=== PATIENT | male | born 1965 | race Caucasian/White ===

== ENCOUNTER 2016-12-09 10:53 | Inpatient (IN) | payer SELFPAY ==
[2016-12-09 11:41] LABS: % IMMATURE GRANULYOCYTES 0.5 % (0.0-1.1); ABSOLUTE IMMATURE GRANULOCYTES 0.04 10^3/uL (0.00-0.10); ADD DIFF? NO; ADD MORPH? NO; ADD SCAN? NO; ATYPICAL LYMPHOCYTE FLAG 0 (0-99); FRAGMENT RBC FLAG 0 (0-99); HEMATOCRIT 35.9 % (40.0-51.0); HEMOGLOBIN 12.8 g/dL (13.7-17.5); LEFT SHIFT FLG 0 (0-99); LIPEMIA HEMOLYSIS FLAG 90 (0-99); MEAN CELL HEMOGLOBIN 34.7 pg (27.9-34.1); MEAN CELL HEMOGLOBIN CONCENTR. 35.7 g/dL (32.4-36.7); MEAN CELL VOLUME 97.3 fL (81.5-99.8); MEAN PLATELET VOLUME 10.3 fL (8.7-11.7); PLATELET CLUMPS FLAG 0 (0-99); PLATELET COUNT 170 10^3/uL (150-400); RED BLOOD CELL COUNT 3.69 10^6/uL (4.40-6.38); RED CELL DISTRIBUTION WIDTH 11.3 % (11.5-15.2)
[2016-12-09 12:02] LABS: ANION GAP 29 mEq/L (8-16); CARBON DIOXIDE 10 mEq/l (22-31); CHLORIDE 92 mEq/L (97-110); CREATININE 1.2 mg/dL (0.7-1.3); ETHANOL SERUM < 10 mg/dL (0-10); GLOMERULAR FILTRATION RATE > 60; GLUCOSE 88 mg/dL (70-100); POTASSIUM 4.1 mEq/L (3.5-5.2); SODIUM 131 mEq/L (134-144)
[2016-12-09] MEDS ORDERED: NS 1,000 ML IV ONE ×2 (12:44)
[2016-12-09] MEDS ORDERED: LORazepam 2 MG/ML INJ IVP ONE ×2 (12:44→15:36)
--- NOTE | 2016-12-09 12:45 | EDPHY ---
H & P Stated Complaint: found wondering in library by [employer] disoriented Time Seen by Provider: 12/09/16 11:10 HPI/ROS: CHIEF COMPLAINT: altered mental status HISTORY OF PRESENT ILLNESS: 51-year-old male presents emergency department by police officers who found him walking downtown disoriented and confused. Upon arrival to the emergency department the patient continued confused though has slowly cleared. Patient reports a history of alcohol abuse and alcohol withdrawal seizures. He states he thinks he may have had a seizure. Patient denies chest pain, shortness of breath, abdominal pain. He denies any drug use. Patient reports he takes Adderall occasionally. Patient states last drink was 4 days ago. REVIEW OF SYSTEMS: A comprehensive 10 point review of systems is otherwise negative aside from elements mentioned in the history of present illness. Source: Patient, Police Exam Limitations: No limitations - Personal History Current Tetanus/Diphtheria Vaccine: Unsure Current Tetanus Diphtheria and Acellular Pertussis (TDAP): Unsure - Medical/Surgical History Hx Asthma: No Hx Chronic Respiratory Disease: No Hx Diabetes: No Hx Cardiac Disease: No Hx Renal Disease: No Hx Cirrhosis: No Hx Alcoholism: Yes Hx HIV/AIDS: No Hx Splenectomy or Spleen Trauma: No Other PMH: depression, anxiety - Social History Smoking Status: Current some day smoker Alcohol Use: Heavy - Physical Exam Exam: Physical Exam Gen: Alert and Oriented, NAD HEENT: PERRL, moist mucous membranes NECK: no meningismus CV: regular rate and regular rhythm PULM: CTAB, no wheezes ABDOMEN: soft, non tender to palpation, BS present BACK: No CVA tenderness NEURO: Patient alert and oriented to person, place, time,No facial asymmetry, follows commands, moves all extremities, mild tongue fasciculation and hand tremors EXTREMITIES: normal appearing SKIN: no rash or break in skin on exposed skin PSYCH: answers questions appropriately. Constitutional: Initial Vital Signs Temperature (C) 36.7 C 12/09/16 11:00 Heart Rate 98 12/09/16 11:00 Respiratory Rate 16 12/09/16 11:00 Blood Pressure 141/100 H 12/09/16 11:00 O2 Sat (%) 98 12/09/16 11:00 O2 Delivery Mode Room Air Allergies/Adverse Reactions: No Known Allergies Allergy (Unverified 12/09/16 10:59) Home Medications: Medication Instructions Recorded Unobtainable 12/09/16 Medical Decision Making - Diagnostics Imaging: Discussed imaging studies w/ supervisor train operations Radiologist ED Course/Re-evaluation: 51-year-old male presents to the emergency department with confusion likely postictal after alcohol withdrawal seizure. Patient slowly as clearing in the emergency department. Patient's chemistry panel is suggestive that he had a seizure with a bicarb of 10. Patient's BUN is elevated. Patient is given 2 L of normal saline and 2 mg of lorazepam IV. [facility] Librium prepack. 330pm-patient re-evaluated, he is confused, tremulous, visual hallucinations. Patient will be admitted for DTs. Pt is given another dose of lorazepam IV. He will be admitted to the ICU. Repeat chemistry panel, lactate and phosphorus ordered. 6pm- patient sleeping, difficult to arouse, increasing confusion. Patient continues with tongue fasciculations and hand tremors, CT brain ordered. Patient transferred to ICU. CT brain with no acute abnormality. Differential Diagnosis: diagnosis considered but not limited to alcohol withdrawal, alcohol withdrawal seizures, delirium tremens, electrolyte imbalance, polysubstance abuse. - Data Points Laboratory Results: Laboratory Results 12/09/16 11:33 12/09/16 11:33 12/09/16 12/09/16 12/09/16 11:33 11:33 11:12 WBC 8.83 10^3/uL 10^3/uL (3.80-9.50) RBC 3.69 10^6/uL L 10^6/uL (4.40-6.38) Hgb 12.8 g/dL L g/dL (13.7-17.5) Hct 35.9 % L % (40.0-51.0) MCV 97.3 fL fL (81.5-99.8) MCH 34.7 pg H pg (27.9-34.1) MCHC 35.7 g/dL g/dL (32.4-36.7) RDW 11.3 % L % (11.5-15.2) Plt Count 170 10^3/uL 10^3/uL (150-400) MPV 10.3 fL fL (8.7-11.7) Neut % (Auto) 84.8 % H % (39.3-74.2) Lymph % (Auto) 6.1 % L % (15.0-45.0) [place] % (Auto) 8.6 % % (4.5-13.0) Eos % (Auto) 0.0 % L % (0.6-7.6) Baso % (Auto) 0.0 % L % (0.3-1.7) Nucleat RBC Rel Count 0.0 % % (0.0-0.2) Absolute Neuts (auto) 7.49 10^3/uL H 10^3/uL (1.70-6.50) Absolute Lymphs (auto) 0.54 10^3/uL L 10^3/uL (1.00-3.00) Absolute Monos (auto) 0.76 10^3/uL 10^3/uL (0.30-0.80) Absolute Eos (auto) 0.00 10^3/uL L 10^3/uL (0.03-0.40) Absolute Basos (auto) 0.00 10^3/uL L 10^3/uL (0.02-0.10) Absolute Nucleated RBC 0.00 10^3/uL 10^3/uL (0-0.01) Immature Gran % 0.5 % % (0.0-1.1) Immature Gran # 0.04 10^3/uL 10^3/uL (0.00-0.10) Sodium 131 mEq/L L mEq/L (134-144) Potassium 4.1 mEq/L mEq/L (3.5-5.2) Chloride 92 mEq/L L mEq/L (97-110) Carbon Dioxide 10 mEq/l L mEq/l (22-31) Anion Gap 29 mEq/L H mEq/L (8-16) BUN 56 mg/dL H mg/dL (7-23) Creatinine 1.2 mg/dL mg/dL (0.7-1.3) Estimated GFR > 60 Glucose 88 mg/dL mg/dL (70-100) Calcium 10.0 mg/dL mg/dL (8.5-10.4) Urine Opiates Screen NEGATIVE (NEGATIVE) Urine Barbiturates NEGATIVE (NEGATIVE) Ur Phencyclidine Scrn NEGATIVE (NEGATIVE) Ur Amphetamine Screen NON-NEGATIVE H (NEGATIVE) U Benzodiazepines Scrn NEGATIVE (NEGATIVE) Urine Cocaine Screen NEGATIVE (NEGATIVE) U Marijuana (THC) Screen NEGATIVE (NEGATIVE) Ethyl Alcohol < 10 mg/dL mg/dL (0-10) Medications Given: Discontinued Medications Chlordiazepoxide (Librium 25 Mg Prepack#6) 1 btl TAKEHOME EDNOW ONE Stop: 12/09/16 13:45 Last Admin: 12/09/16 17:59 Dose: Not Given Sodium Chloride (Ns) 1,000 mls @ 0 mls/hr IV ONCE ONE PRN Reason: Wide Open Stop: 12/09/16 12:45 Last Admin: 12/09/16 12:45 Dose: 1,000 mls Sodium Chloride (Ns) 1,000 mls @ 0 mls/hr IV ONCE ONE PRN Reason: Wide Open Stop: 12/09/16 12:45 Last Admin: 12/09/16 13:45 Dose: 1,000 mls Lorazepam (Ativan Injection) 2 mg IVP EDNOW ONE Stop: 12/09/16 12:45 Last Admin: 12/09/16 13:45 Dose: 2 mg Lorazepam (Ativan Injection) 1 mg IVP EDNOW ONE Stop: 12/09/16 15:37 Last Admin: 12/09/16 16:14 Dose: 1 mg Departure - Departure Disposition: [facility] Clinical Impression: Encephalopathy, Delirium tremens Condition: Good
[2016-12-09] MEDS ORDERED: CHLORDIAZEPOXIDE 25MG PREPK#6 BTL TAKEHOME ONE (13:44)
[2016-12-09] MEDS ORDERED: ONDANSETRON DISINTEGRATING 4 MG TAB PO PRN (16:42)
[2016-12-09] MEDS ORDERED: ONDANSETRON 4 MG/2 ML VIAL IVP PRN (16:42)
[2016-12-09] MEDS ORDERED: ACETAMINOPHEN 325 MG TAB PO PRN (16:42)
[2016-12-09] MEDS ORDERED: LORazepam 2 MG/ML INJ IVP PRN (16:44)
[2016-12-09] MEDS ORDERED: NS 1,000 ML IV SCH (16:45)
[2016-12-09 17:33] LABS: ALANINE AMINOTRANSFERASE 118 IU/L (21-72); ALBUMIN 4.6 g/dL (3.5-5.0); ALKALINE PHOSPHATASE 95 IU/L (38-126); ANION GAP 20 mEq/L (8-16); ASPARTATE AMINOTRANSFERASE 195 IU/L (17-59); BILIRUBIN,TOTAL 3.4 mg/dL (0.1-1.4); BILIRUBIN-CONJUGATED 1.9 mg/dL (0.0-0.5); BILIRUBIN-UNCONJUGATED 1.5 mg/dL (0.0-1.1); CALCIUM 8.5 mg/dL (8.5-10.4); CARBON DIOXIDE 16 mEq/l (22-31); CHLORIDE 99 mEq/L (97-110); CREATININE 0.8 mg/dL (0.7-1.3); GLOMERULAR FILTRATION RATE > 60; GLUCOSE 71 mg/dL (70-100); POTASSIUM 3.8 mEq/L (3.5-5.2); SODIUM 135 mEq/L (134-144); TOTAL PROTEIN 7.3 g/dL (6.3-8.2)
--- NOTE | 2016-12-09 17:41 | GHP ---
[f rep st] HISTORY AND PHYSICAL DATE OF ADMISSION: 12/09/2016 CHIEF COMPLAINT: Confusion. HISTORY OF PRESENT ILLNESS: A 51-year-old male, with a history of polysubstance abuse, who was foun d disoriented and acutely confused walking around downtown, patient was brought into the emergency d epartment by [employer]. Upon arrival to the emergency department patient reports a history of alcohol abuse, as well as alcohol withdrawal seizures. Reports that he believes his last drink was several days ago. Denies any chest pain, denies any shortness of breath, denies any abdominal pain, denies any known vomiting. Denies hematemesis, hematochezia, or melena. Reports that he takes sti mulants for his psychiatric illness, denies any known sick contacts, headache, vision changes, or kn own rashes. PAST MEDICAL HISTORY: 1. Depression. 2. Anxiety. SOCIAL HISTORY: Patient has been known to abuse alcohol, denies tobacco or illicit drugs. Patient reports occasionally smoking a cigarette. FAMILY HISTORY: Negative for cardiac disease. REVIEW OF SYSTEMS: A 10-point review of systems is negative, with the exception of that reported in HPI. PHYSICAL EXAMINATION: VITAL SIGNS: Blood pressure is 141/100, heart rate 105, respiratory rate 18, saturating 98% on room air, 36.7. GENERAL: This is a very disheveled young male in mild distress. HEENT: Notable for dry mucous membranes. Eye exam is negative for any icterus. CARDIAC: Patien t is noted to be tachycardic. PULMONARY: Clear to auscultation. GASTROINTESTINAL: Positive bowel sounds. ABDOMEN: Soft. MUSCULOSKELETAL: Negative for any lower extremity edema. SKIN: Negativ e for any rashes. NEUROLOGIC: Patient appears somnolent, but following the examination he is orien jeannie x2 and tremulous on examination. PSYCHIATRIC: He seems somnolent. DATA: White count 8.8, hematocrit 35.9, platelets of 170, bicarb of 10, sodium of 131, anion gap of 29, BUN 56, creatinine 1.2. Urine tox shows amphetamine positivity as well as an alcohol level les s than 10. Telemetry, which I personally reviewed and interpreted, shows sinus rhythm, tachycardia. ASSESSMENT AND PLAN: This is a 51-year-old male presenting with acute alcohol withdrawal. 1. Acute alcohol withdrawal. Patient has a history of alcohol withdrawal seizures and excessive in take previous. We will admit the patient, place on the alcohol withdrawal protocol. His risk of re quiring Precedex is quite high, we will admit him to the stepdown unit for close monitoring. 2. Metabolic anion gap acidosis, suspect starvation ketosis related to his alcohol, and poor p.o. i ntake. We will aggressively fluid resuscitate, check a lactate level and follow. 3. Alcohol abuse. We will give the patient vitamins, check a phosphorus level, and hydrate as abov e. Patient will need counseling once he gets through the worst of this withdrawal. 4. Acute kidney injury, suspect secondary to hypovolemia. We will fluid resuscitate and recheck a set of labs, prophylaxis with Lovenox. 5. Diet, n.p.o. until he clears and is protecting his airway appropriately. DISPOSITION: I expect greater than 2 midnights, as I believe the patient's alcohol withdrawal will worsen before he stabilizes. We will admit to the stepdown unit. I have discussed the case with [facility] emergency room provider. Patient will be triaged to the step-down in anticipation of worsening al cohol withdrawal status. /[id number]/MODL
[2016-12-10] MEDS: chlordiazePOXIDE 25 MG CAP PO SCH ×4 (00:17→21:00)
[2016-12-10 05:40] LABS: % IMMATURE GRANULYOCYTES 0.2 % (0.0-1.1); ABSOLUTE IMMATURE GRANULOCYTES 0.01 10^3/uL (0.00-0.10); ADD DIFF? NO; ADD MORPH? NO; ADD SCAN? NO; ATYPICAL LYMPHOCYTE FLAG 0 (0-99); FRAGMENT RBC FLAG 0 (0-99); HEMATOCRIT 31.8 % (40.0-51.0); HEMOGLOBIN 11.4 g/dL (13.7-17.5); LEFT SHIFT FLG 0 (0-99); LIPEMIA HEMOLYSIS FLAG 90 (0-99); MEAN CELL HEMOGLOBIN CONCENTR. 35.8 g/dL (32.4-36.7); MEAN CELL VOLUME 97.5 fL (81.5-99.8); MEAN PLATELET VOLUME 10.3 fL (8.7-11.7); PLATELET CLUMPS FLAG 10 (0-99); PLATELET COUNT 128 10^3/uL (150-400); RED BLOOD CELL COUNT 3.26 10^6/uL (4.40-6.38); RED CELL DISTRIBUTION WIDTH 11.4 % (11.5-15.2)
[2016-12-10 05:43] LABS: INR 1.15 (0.83-1.16); PROTIME(PATIENT) 14.6 SEC (12.0-15.0)
[2016-12-10 05:59] LABS: ANION GAP 13 mEq/L (8-16); CALCIUM 8.6 mg/dL (8.5-10.4); CARBON DIOXIDE 21 mEq/l (22-31); CHLORIDE 103 mEq/L (97-110); CREATININE 0.6 mg/dL (0.7-1.3); GLOMERULAR FILTRATION RATE > 60; GLUCOSE 80 mg/dL (70-100); MAGNESIUM 2.5 mg/dL (1.6-2.3); POTASSIUM 3.4 mEq/L (3.5-5.2); SODIUM 137 mEq/L (134-144)
[2016-12-10] MEDS: ENOXAPARIN 40 MG/0.4 ML SYR SC SCH (09:25)
[2016-12-10] MEDS ORDERED: chlordiazePOXIDE 25 MG CAP PO PRN (09:31)
--- NOTE | 2016-12-10 09:34 | HOSPPROG ---
Hospitalist Progress Note Assessment/Plan: * ETOH withdrawal * Improving * Continue scheduled Librium * Will add p.r.n. Librium * Transfer to the floor * Probable home tomorrow * history of alcohol withdrawal seizure * alcoholic hepatitis Subjective: Feels pretty good. No new complaints Objective: Vital Signs Temp Pulse Resp BP Pulse Ox 37.1 C 73 13 107/72 97 12/09/16 18:39 12/10/16 04:00 12/10/16 04:00 12/10/16 04:00 12/10/16 04:00 Laboratory Results 12/10/16 05:20 12/10/16 05:20 12/09/16 12/10/16 12/11/16 05:59 05:59 05:59 Intake Total 3216 Output Total 900 Balance 2316 PT 14.6 SEC (12.0-15.0) 12/10/16 05:20 INR 1.15 (0.83-1.16) 12/10/16 05:20 Tele personally viewed interpreted normal sinus rhythm Patient is new to me. Records reviewed and summarized - Physical Exam Constitutional: no apparent distress, appears nourished, not in pain Eyes: anicteric sclera, EOMI Ears, Nose, Mouth, Throat: moist mucous membranes, hearing normal, ears appear normal Cardiovascular: regular rate and rhythym, no murmur, rub, or gallop Respiratory: no respiratory distress, no rales or rhonchi, clear to auscultation Gastrointestinal: normoactive bowel sounds, soft, non-tender abdomen, no palpable masses Skin: warm Neurologic: AAOx3, other (Minimal tremor) Psychiatric: interacting appropriately, not anxious, not encephalopathic, thought process linear ICD10 Worksheet Patient Problems: Problems Problem Status Onset Delirium tremens Acute Encephalopathy Acute
[2016-12-11 05:21] LABS: ANION GAP 10 mEq/L (8-16); CALCIUM 8.8 mg/dL (8.5-10.4); CARBON DIOXIDE 27 mEq/l (22-31); CHLORIDE 98 mEq/L (97-110); CREATININE 0.5 mg/dL (0.7-1.3); GLOMERULAR FILTRATION RATE > 60; GLUCOSE 103 mg/dL (70-100); MAGNESIUM 2.2 mg/dL (1.6-2.3); POTASSIUM 2.9 mEq/L (3.5-5.2); SODIUM 135 mEq/L (134-144)
[2016-12-11] MEDS ORDERED: POTASSIUM CL 20 MEQ TAB PO ONE ×2 (06:32→08:47)
[2016-12-11] MEDS: chlordiazePOXIDE 25 MG CAP PO SCH (08:02)
[2016-12-11] MEDS: ENOXAPARIN 40 MG/0.4 ML SYR SC SCH (08:04)
[2016-12-11 08:58] VITALS: BP 103/68; PULSE 91; RESP 18; TEMP 99.3; O2SAT 91
--- NOTE | 2016-12-11 09:26 | GDS ---
[f rep st] DISCHARGE SUMMARY DISCHARGE DIAGNOSES: 1. Alcohol withdrawal. 2. Alcohol withdrawal seizure. 3. Alcoholic hepatitis. HISTORY: This is a 51-year-old male presenting with confusion. His last drink was several days nathan or to admission. HOSPITAL COURSE: Patient admitted for alcohol withdrawal. He was treated with Librium. He actuall y did quite well, and on the day of discharge, his withdrawal symptoms were under good control. He will be discharged home without any other plan. /[id number]/MODL
[2016-12-12] MEDS ORDERED: THIAMINE HCL 100 MG TAB PO SCH (09:00)
== END 2016-12-11 10:15 | disposition home or self-care (01) | DRG 897 ==
LOC: F2N 18:29 → F3E 12-10 14:32
PROVIDERS: ADMIT Hospitalist; ATTEND Hospitalist
PROC: HZ2ZZZZ Detoxification Services for Substance Abuse Treatment (ICD-10-PCS; principal; 2016-12-09)
DX: F10.231 Alcohol dependence with withdrawal delirium (principal); F10.239 Alcohol dependence with withdrawal, unspecified; R56.9 Unspecified convulsions; K70.10 Alcoholic hepatitis without ascites; E86.1 Hypovolemia; N17.9 Acute kidney failure, unspecified; E87.2 Acidosis; F32.9 Major depressive disorder, single episode, unspecified; F41.9 Anxiety disorder, unspecified
CPT/HCPCS: 80305; 96374; G0480; J1650; J2060

== ENCOUNTER 2016-12-11 10:31 | Emergency (ER) | payer SELFPAY ==
--- NOTE | 2016-12-11 10:49 | EDPHY ---
Mental Health General Narrative: CHIEF COMPLAINT: Requesting resources HISTORY OF PRESENT ILLNESS: 51-year-old male presents emergency department minutes after being discharged from the patient Care Unit after being hospitalized for 3 days for alcohol withdrawal. Patient is homeless. He was discharged and reported he was feeling depressed with no place to go. Patient is new to [place]. He reports a history of depression, stopped taking Paxil a couple years ago. Pt reports he is feeling depressed and reports suicidal thoughts this morning when thinking about having no resources in [place]. Patient reports he has not had any alcohol to drink for 7 days. He smokes marijuana, denies other drug use. Patient denies history of suicidal thoughts, no history of suicide attempt. REVIEW OF SYSTEMS: A comprehensive 10 point review of systems is otherwise negative aside from elements mentioned in the history of present illness. Physical Exam Gen: Alert and Oriented, NAD HEENT: PERRL, moist mucous membranes NECK: no meningismus CV: regular rate and regular rhythm PULM: CTAB, no wheezes ABDOMEN: soft, non tender to palpation, BS present BACK: No CVA tenderness NEURO: Neurologically grossly intact EXTREMITIES: normal appearing SKIN: no rash or break in skin on exposed skin PSYCH: answers questions appropriately, denies current suicidal ideations. Previous Psychiatric History: substance abuse, depression History Review: I reviewed the patient's medical records Smoking Status: Current some day smoker Medical Decision Makin-patient is given resources by both case management and the mental health provider. Patient reports he feels safe being discharged, he contracts for safety and denies current suicidal ideations. Patient is given resources for [facility] and is aware of the crisis Center that is open 24 hours a day. - Objective Vital Signs: Initial Vital Signs Temperature (C) 36.8 C 12/11/16 10:36 Heart Rate 100 12/11/16 10:36 Respiratory Rate 18 12/11/16 10:36 Blood Pressure 113/81 H 12/11/16 10:36 O2 Sat (%) 96 12/11/16 10:36 O2 Delivery Mode Room Air Allergies/Adverse Reactions: No Known Allergies Allergy (Verified 12/11/16 10:36) Home Medications: Medication Instructions Recorded NK [No Known Home Meds] 12/11/16 Laboratory Results: 12/11/16 11:30 Urine Opiates Screen NEGATIVE (NEGATIVE) Urine Barbiturates NEGATIVE (NEGATIVE) Ur Phencyclidine Scrn NEGATIVE (NEGATIVE) Ur Amphetamine Screen NEGATIVE (NEGATIVE) U Benzodiazepines Scrn NON-NEGATIVE H (NEGATIVE) Urine Cocaine Screen NEGATIVE (NEGATIVE) U Marijuana (THC) Screen NON-NEGATIVE H (NEGATIVE) Departure - Departure Disposition: Home, Routine, Self-Care Clinical Impression: Homelessness Depression Qualifiers: Depression Type: unspecified Qualified Code(s): F32.9 - Major depressive disorder, single episode, unspecified Condition: Good Instructions: Depression (ED), Polysubstance Abuse (ED) Additional Instructions: 1. Please follow-up with the mental health resources provided in the ED today. 2. [facility] does operate a 24/ psychiatric crisis unit located at [address] [place] [address]. The telephone number for the 24 hour crisis center is [phone]. 3. Please return to the ED if you are feeling suicidal, having thoughts of harming yourself/others or should you feel unsafe or have worsening symptoms. Referrals: [facility],. [Clinic] - As per Instructions
[2016-12-11 12:32] VITALS: BP 133/78; PULSE 76; RESP 16; TEMP 97.7; O2SAT 98
== END 2016-12-11 12:32 | disposition home or self-care (01) ==
DX: F32.9 Major depressive disorder, single episode, unspecified (principal); F17.200 Nicotine dependence, unspecified, uncomplicated; Z59.0 Homelessness
CPT/HCPCS: 80305